=== PATIENT | male | born 1970 | race Hispanic/Latino ===

== ENCOUNTER 2017-07-28 02:29 | Emergency (ER) | payer MEDICARE ==
[2017-07-28 02:36] VITALS: BMI 30.5
[2017-07-28 02:39] VITALS: RESP 18; TEMP 98.4
--- NOTE | 2017-07-28 02:54 | ED PDOC ---
Arrival/HPI - General Chief Complaint: High Blood Pressure Time Seen by Provider: 07/28/17 02:33 Historian: Patient - History of Present Illness Narrative History of Present Illness (Text): 07/28/17 02:54 46 year old male, whose past medical history includes hypertension anxiety, and ESRD on hemodialysis (T, T,S), presents to the emergency department for medical clearance due to high blood pressure. Patient states his high pressure was high due to his stressing him out. Patient reports his normal blood pressure ranges around 174/85. He also refusing blood work. Patient denies any fever, chills, chest pain, shortness of breath, nausea, vomiting, diarrhea, urinary symptoms, back pain, neck pain, headache, dizziness, or any other complaints. Time/Duration: Prior to Arrival Symptom Onset: Sudden Symptom Course: Unchanged Activities at Onset: Light Context: Home Past Medical History - Provider Review Nursing Documentation Reviewed: Yes - Infectious Disease Hx of Infectious Diseases: None - Tetanus Immunization Tetanus Immunization: Unknown - Cardiac Hx Pacemaker: No - Pulmonary Hx Respiratory Disorders: Yes Hx Pneumonia: Yes (02-05-14) Other/Comment: SMOKER 1/2 PKG DAY - Neurological Hx Paralysis: No - HEENT Hx HEENT Disorder: Yes (blurred vision right eye) - Renal Hx Dialysis: Yes ([facility],LEFT HAND SHUNT,RIGHT CHEST WALL UDALL) - Endocrine/Metabolic Hx Endocrine Disorders: No - Hematological/Oncological Hx Blood Transfusions: No Hx Blood Transfusion Reaction: No - Integumentary Hx Dermatological Disorder: Yes (VERY DRY THICKENED SKIN,CALLOUSED KNEES) Hx Cellulitis: Yes - Musculoskeletal/Rheumatological Hx Musculoskeletal Disorders: No - Gastrointestinal Hx Gastrointestinal Disorders: Yes Other/Comment: fluctuating weight gain and loss since cva - Genitourinary/Gynecological Hx Genitourinary Disorders: No - Psychiatric Hx Emotional Abuse: No Hx Physical Abuse: No Hx Substance Use: No (Hx heroin, pt currently denies) - Surgical History Other/Comment: peritoneal dialysis catheter insertion and removal - Anesthesia Hx Anesthesia Reactions: Yes (NAUSEA/VOMITING) Hx Malignant Hyperthermia: No - Suicidal Assessment Feels Threatened In Home Enviroment: No Family/Social History - Physician Review Nursing Documentation Reviewed: Yes Family/Social History: No Known Family HX Smoking Status: Light Smoker < 10 Cigarettes Daily Hx Alcohol Use: No Hx Substance Use: No (Hx heroin, pt currently denies) Hx Substance Use Treatment: No Allergies/Home Meds Allergies/Adverse Reactions: Allergies Sulfa (Sulfonamide Antibiotics) Allergy (Severe, Verified 06/11/16 09:56) SWELLING Home Medications: Home Meds Medication Instructions Recorded Confirmed ALPRAZolam [Xanax] 2 mg PO TID PRN 05/17/16 07/28/17 Amlodipine/Valsartan [Amlodipine 1 tab PO DAILY 05/17/16 07/28/17 Besylate-Valsartan 5 mg-160 mg] Cinacalcet [Sensipar] 30 mg PO DAILY 05/17/16 07/28/17 traZODone [Desyrel] 100 mg PO HS PRN 05/17/16 07/28/17 oxyCODONE/Acetaminophen [Percocet 1 tab PO Q4 PRN 08/13/16 07/28/17 5/325 mg Tab] Review of Systems - Physician Review All systems were reviewed & negative as marked: Yes - Review of Systems Constitutional: absent: Fevers, Other (Chills) Respiratory: absent: SOB Cardiovascular: absent: Chest Pain Gastrointestinal: absent: Diarrhea, Nausea, Vomiting Genitourinary Male: absent: Dysuria, Frequency, Hematuria Musculoskeletal: absent: Back Pain, Neck Pain Neurological: absent: Headache, Dizziness Physical Exam Vital Signs Reviewed: Yes Vital Signs Temp Pulse Resp BP Pulse Ox 07/28/17 04:00 80 18 179/89 H 99 07/28/17 03:03 80 224/96 H 07/28/17 02:36 98.4 F 88 18 224/96 H 96 Temperature: Afebrile Blood Pressure: Hypertensive Pulse: Regular Respiratory Rate: Normal Appearance: Positive for: Well-Appearing, Non-Toxic, Comfortable Pain Distress: None Mental Status: Positive for: Alert and Oriented X 3 - Systems Exam Head: Present: Atraumatic, Normocephalic Pupils: Present: PERRL Extroacular Muscles: Present: EOMI Conjunctiva: Present: Normal Mouth: Present: Moist Mucous Membranes Neck: Present: Normal Range of Motion Respiratory/Chest: Present: Clear to Auscultation, Good Air Exchange. No: Respiratory Distress, Accessory Muscle Use Cardiovascular: Present: Regular Rate and Rhythm, Normal S1, S2. No: Murmurs Abdomen: Present: Normal Bowel Sounds. No: Tenderness, Distention, Peritoneal Signs Back: Present: Normal Inspection Upper Extremity: Present: Normal Inspection, Other (Good thrill and [place] on the left upper extremity ). No: Cyanosis, Edema Lower Extremity: Present: Normal Inspection. No: Edema Neurological: Present: GCS=15, CN II-XII Intact, Speech Normal Skin: Present: Warm, Dry, Normal Color. No: Rashes Psychiatric: Present: Alert, Oriented x 3, Normal Insight, Normal Concentration Medical Decision Making ED Course and Treatment: 07/28/17 02:54 Impression: 46 year old male presents complaining high blood pressure and is here for medical clearance. Plan: -- Ativan -- Catapres -- Reassess and disposition Progress Notes: Patient refuses blood work. 07/28/17 04:10 On re-evaluation, patient blood pressure is lower and has no further compliments. I have discussed the results and plan with the patient, who expresses understanding. Patient in agreement with plan to be discharged home. Patient is stable for discharge. Patient was instructed to follow up with physician or return if symptoms worsen or new concerning symptoms arise. - Medication Orders Current Medication Orders: Discontinued Medications Clonidine HCl (Catapres) 0.1 mg PO STAT STA Stop: 07/28/17 02:56 Last Admin: 07/28/17 03:03 Dose: 0.1 mg MAR Pulse and Blood Pressure Document 07/28/17 03:03 MATTIE (Rec: 07/28/17 03:03 [id number] Pulse Pulse Rate (60-90) 80 Blood Pressure Blood Pressure (100/60-150/90) 224/96 Lorazepam (Ativan) 1 mg PO STAT STA PRN Reason: Protocol Stop: 07/28/17 02:56 Last Admin: 07/28/17 03:01 Dose: 1 mg - Shawnibe Statement The provider has reviewed the documentation as recorded by the Shawnibromeo Pugh All medical record entries made by the Shawnibromeo were at my direction and personally dictated by me. I have reviewed the chart and agree that the record accurately reflects my personal performance of the history, physical exam, medical decision making, and the department course for this patient. I have also personally directed, reviewed, and agree with the discharge instructions and disposition. Disposition/Present on Arrival - Present on Arrival Any Indicators Present on Arrival: No History of DVT/PE: No History of Uncontrolled Diabetes: No Urinary Catheter: No History of Decub. Ulcer: No History Surgical Site Infection Following: None - Disposition Have Diagnosis and Disposition been Completed?: Yes Diagnosis: Hypertension Disposition: HOME/ ROUTINE Disposition Time: 03:00 Condition: IMPROVED Discharge Instructions (ExitCare): Hypertension (ED) Additional Instructions: Thank you for letting us take care of you today. Your provider was Dr. Wolfe. You were treated for hypertension. The emergency medical care you received today was directed at your acute symptoms. If you were prescribed any medication, please fill it and take as directed. It may take several days for your symptoms to resolve. Return to the Emergency Department if your symptoms worsen, do not improve, or if you have any other problems. Please contact your doctor or call one of the physicians/clinics you have been referred to that are listed on the Patient Visit Information form that is included in your discharge packet. Bring any paperwork you were given at discharge with you along with any medications you are taking to your follow up visit. Our treatment cannot replace ongoing medical care by a primary care provider (PCP) outside of the emergency department. Thank you for allowing the [facility] team to be part of your care today. 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 Referrals: [facility] [Outside] - Follow up with primary [facility] [place] [Outside] - Follow up with primary Forms: FRM Study Course (Danish)
[2017-07-28 03:03] VITALS: PULSE 80
[2017-07-28 04:30] VITALS: BP 179/89; O2SAT 99
== END 2017-07-28 04:20 | disposition home or self-care (01) ==
LOC: ED 02:29
DX: I12.0 Hypertensive chronic kidney disease with stage 5 chronic kidney disease or end stage renal disease (principal); N18.6 End stage renal disease; Z99.2 Dependence on renal dialysis; F17.210 Nicotine dependence, cigarettes, uncomplicated

== ENCOUNTER 2018-02-04 13:15 | Emergency (ER) | payer MEDICARE ==
[2018-02-04 13:15] VITALS: BMI 30.5
[2018-02-04 13:57] VITALS: TEMP 99.5
--- NOTE | 2018-02-04 15:00 | ED PDOC ---
Arrival/HPI - General Chief Complaint: Lower Extremity Problem/Injury Time Seen by Provider: 02/04/18 14:20 Historian: Patient - History of Present Illness Narrative History of Present Illness (Text): 02/04/18 14:57 47yo male with Past medical history of hypertension, CVA, ESRD on dialysis MWF present with left foot pain/swelling s/p trauma yesterday. Patient states a piece of furniture landed on his left foot yesterday, while he was helping a friend with moving the furniture. Notes that pain and swelling was worse yesterday. He did not take any pain medication. He denies any other complaint. Past Medical History - Provider Review Nursing Documentation Reviewed: Yes - Infectious Disease Hx of Infectious Diseases: None - Tetanus Immunization Tetanus Immunization: Unknown - Cardiac Hx Cardiac Disorders: Yes Hx Hypertension: Yes - Pulmonary Hx Respiratory Disorders: Yes Hx Pneumonia: Yes Other/Comment: SMOKER 1/2 PKG DAY - Neurological Hx Neurological Disorder: Yes HX Cerebrovascular Accident: Yes - HEENT Hx HEENT Disorder: Yes (blurred vision right eye) - Renal Hx Renal Disorder: Yes Hx Dialysis: Yes - Endocrine/Metabolic Hx Endocrine Disorders: No - Hematological/Oncological Hx Blood Disorders: No - Integumentary Hx Dermatological Disorder: Yes Hx Cellulitis: Yes - Musculoskeletal/Rheumatological Hx Musculoskeletal Disorders: No - Gastrointestinal Hx Gastrointestinal Disorders: Yes - Genitourinary/Gynecological Hx Genitourinary Disorders: No - Psychiatric Hx Emotional Abuse: No Hx Physical Abuse: No Hx Substance Use: No (Hx heroin, pt currently denies) - Surgical History Other/Comment: AV SHUNT - Anesthesia Hx Anesthesia Reactions: Yes (NAUSEA/VOMITING) Hx Malignant Hyperthermia: No - Suicidal Assessment Feels Threatened In Home Enviroment: No Family/Social History - Physician Review Nursing Documentation Reviewed: Yes Family/Social History: Unknown Family HX Smoking Status: Light Smoker < 10 Cigarettes Daily Hx Alcohol Use: No Hx Substance Use: No (Hx heroin, pt currently denies) Hx Substance Use Treatment: No Allergies/Home Meds Allergies/Adverse Reactions: Allergies Sulfa (Sulfonamide Antibiotics) Allergy (Severe, Verified 02/04/18 13:49) SWELLING Home Medications: Home Meds Medication Instructions Recorded Confirmed ALPRAZolam [Xanax] 2 mg PO TID PRN 05/17/16 02/04/18 Amlodipine/Valsartan [Amlodipine 1 tab PO DAILY 05/17/16 02/04/18 Besylate-Valsartan 5 mg-160 mg] Carvedilol [Coreg] 25 mg PO BID 02/04/18 02/04/18 Sevelamer Carbonate [Renvela] 4 tab PO TID 02/04/18 02/04/18 Review of Systems - Physician Review All systems were reviewed & negative as marked: Yes - Review of Systems Constitutional: Normal Eyes: Normal ENT: Normal Respiratory: Normal Cardiovascular: Normal Gastrointestinal: Normal Genitourinary Male: Normal Musculoskeletal: Arthralgias (Left foot pain/swelling) Skin: Normal Neurological: Normal Endocrine: Normal Hemo/Lymphatic: Normal Psychiatric: Normal Physical Exam Vital Signs Reviewed: Yes Vital Signs Temp Pulse Resp BP Pulse Ox 02/04/18 15:50 72 18 147/81 99 02/04/18 13:52 99.5 F 78 17 176/84 H 96 Temperature: Afebrile Blood Pressure: Normal Pulse: Regular Respiratory Rate: Normal Appearance: Positive for: Well-Appearing, Non-Toxic, Comfortable Pain Distress: None Mental Status: Positive for: Alert and Oriented X 3 - Systems Exam Head: Present: Atraumatic, Normocephalic Pupils: Present: PERRL Extroacular Muscles: Present: EOMI Conjunctiva: Present: Normal Mouth: Present: Moist Mucous Membranes Neck: Present: Normal Range of Motion Respiratory/Chest: Present: Clear to Auscultation, Good Air Exchange. No: Respiratory Distress, Accessory Muscle Use Cardiovascular: Present: Regular Rate and Rhythm, Normal S1, S2. No: Murmurs Abdomen: No: Tenderness, Distention, Peritoneal Signs Back: Present: Normal Inspection Upper Extremity: Present: Normal Inspection. No: Cyanosis, Edema Lower Extremity: Present: Edema (3+), NORMAL PULSES, Normal ROM, Tenderness ( Left dorsal foot), Swelling (Left foot), Neurovascularly Intact Neurological: Present: GCS=15, CN II-XII Intact, Speech Normal Skin: Present: Warm, Dry, Normal Color. No: Rashes Psychiatric: Present: Alert, Oriented x 3, Normal Insight, Normal Concentration Medical Decision Making ED Course and Treatment: 02/04/18 20:11 Left foot xray - No acute fracture Harris wrap and crutches given to pt. Advised to RICE foot. Referred to ortho - RAD Interpretation Radiology Orders: 02/04/18 14:20 ANKLE LEFT 3 VIEWS ROUTINE [RAD] Stat FOOT LEFT 3 VIEWS ROUTINE [RAD] Stat - Medication Orders Current Medication Orders: Discontinued Medications Oxycodone/Acetaminophen (Percocet 5/325 Mg Tab) 1 tab PO STAT STA Stop: 02/04/18 15:22 Last Admin: 02/04/18 15:40 Dose: 1 tab MAR Pain Assessment Document 02/04/18 15:40 JACQUELINE (Rec: 02/04/18 15:41 JACQUELINE [id number]) Pain Reassessment Is this a pain reassessment? No Sleep Is patient sleeping during reassessment? No Presence of Pain Presence of Pain Yes Tramadol HCl (Ultram) 50 mg PO STAT STA Stop: 02/04/18 14:22 Last Admin: 02/04/18 15:10 Dose: Not Given Non-Admin Reason: Patient Refused Disposition/Present on Arrival - Present on Arrival Any Indicators Present on Arrival: No History of DVT/PE: No History of Uncontrolled Diabetes: No Urinary Catheter: No History of Decub. Ulcer: No History Surgical Site Infection Following: None - Disposition Have Diagnosis and Disposition been Completed?: Yes Diagnosis: Foot contusion, Foot sprain Disposition: HOME/ ROUTINE Disposition Time: 15:25 Patient Plan: Discharge Condition: STABLE Discharge Instructions (ExitCare): Contusion (DC), Foot Sprain (DC) Additional Instructions: Rest, Ice, compress and elevate your foot Follow up with your doctor/orthopedist Return to Emergency department for any new symptoms Prescriptions: oxyCODONE/Acetaminophen [Percocet 5/325 mg Tab] 1 tab PO Q6 #6 tab Referrals: Analisa Alamo, [Primary Care Provider] - Follow up with primary Rolando Vergara MD [Staff Provider] - Follow up with primary Forms: [employer] (Kittitian)
--- NOTE | 2018-02-04 15:13 | RAD ---
PROCEDURE: Left Foot Radiographs. HISTORY: foot pain s/p trauma COMPARISON: None. FINDINGS: BONES: Normal. No fracture. JOINTS: Normal. SOFT TISSUES: Normal. OTHER FINDINGS: None. IMPRESSION: Negative study
--- NOTE | 2018-02-04 15:14 | RAD ---
PROCEDURE: Left Ankle Radiographs. HISTORY: ankle pain s/p trauma COMPARISON: None FINDINGS: BONES: Normal. No fracture. JOINTS: Normal. No osteoarthritis. Ankle mortise maintained. Talar dome intact SOFT TISSUES: Normal. OTHER FINDINGS: None. IMPRESSION: Normal left ankle radiographs.
[2018-02-04] MEDS ORDERED: Oxycodone/Acetaminophen 5/325 mg Tab PO STA (15:21)
[2018-02-04 16:08] VITALS: BP 147/81; PULSE 72; RESP 18; O2SAT 99
== END 2018-02-04 16:13 | disposition home or self-care (01) ==
LOC: ED 13:15
DX: S90.32XA Contusion of left foot, initial encounter (principal); S93.602A Unspecified sprain of left foot, initial encounter; W22.8XXA Striking against or struck by other objects, initial encounter; I12.0 Hypertensive chronic kidney disease with stage 5 chronic kidney disease or end stage renal disease; N18.6 End stage renal disease; Z99.2 Dependence on renal dialysis; F17.210 Nicotine dependence, cigarettes, uncomplicated